=== PATIENT | female | born 1975 | race Caucasian/White ===

== ENCOUNTER 2021-01-22 10:20 | Outpatient (REF) | payer OTHER, SELFPAY ==
[2021-01-22 12:34] LABS: COVID-19 Test Negative (Negative)
== END 2021-01-22 10:21 | disposition home or self-care (01) ==
LOC: HO.LAB 10:20
PROVIDERS: PCP Internal Medicine; Visit Provider Internal Medicine
DX: Z20.822 Contact with and (suspected) exposure to COVID-19 (principal)
CPT/HCPCS: 36415; 87635; C9803

== ENCOUNTER 2025-02-18 18:00 | Emergency (ER) | payer OTHER, SELFPAY ==
[2025-02-18 18:04] VITALS: BP 141/75; PULSE 64; RESP 16; TEMP 36.1; O2SAT 100; BMI 23.6
--- NOTE | 2025-02-18 18:06 | ED.FEMALEGU ---
HPI - Female Genitourinary General Chief complaint: Urogenital-Female Stated complaint: ? uti Time Seen by Provider: 02/18/25 20:37 Source: patient Limitations: no limitations History of Present Illness ED Provider: Ana Leung PA-C HPI Narrative: 49-year-old female presents with dysuria. Associated burning with urination, discolored urine and suprapubic discomfort. Denies back pain, flank pain, nausea vomiting or fever. Related Data Previous Rx's ?Medication ?Instructions ?Recorded cephalexin 500 mg capsule 500 mg PO Q12H #13 caps 02/18/25 fluconazole 150 mg tablet 150 mg PO Q3D 2 doses #2 tabs 02/18/25 phenazopyridine 200 mg tablet 200 mg PO TID PRN pain #10 tabs 02/18/25 (Pyridium) Allergies Allergy/AdvReac Type Severity Reaction Status Date / Time No Known Allergies (No Known Allergy Verified 02/18/25 18:06 Allergies*) Review of Systems Review of Systems: Yes all other systems are reviewed and are negative Constitutional: Constitutional: Denies fatigue and Denies fever(s) Gastrointestinal: Gastrointestinal: Reports abdominal pain, Denies nausea and Denies vomiting Genitourinary: Genitourinary: Reports hematuria, Reports dysuria, Denies pelvic pain and Denies flank pain Musculoskeletal: Musculoskeletal: Denies back pain Endocrine: Endocrine: Denies fatigue [facility] Past Medical History Attestation statement: The following information was validated with the patient. Social History Social History Advance Directives: No Advance Directives Information Provided: No Physical Exam Vital Signs: Vital Signs: Last Vital Signs Temp 97.0 F 02/18/25 18:04 Pulse 64 02/18/25 18:04 Resp 16 02/18/25 18:04 BP 141/75 H 02/18/25 18:04 Pulse Ox 100 02/18/25 18:04 O2 Del Method Room Air 02/18/25 18:04 BMI result Body Mass Index 23.6 Const: Other: Alert well-appearing Orientation/consciousness: patient oriented x3 Resp: Effort & Inspection: normal respiratory effort Cardio: Other: Normal peripheral perfusion : General: Yes no CVA tenderness Back/Spine/Pelvis: Back: no CVA tenderness Skin: Other: Warm dry no rash Neuro: General: patient oriented x3, gait normal, no focal motor deficits and CN's II-XI intact bilaterally Psych: Other: Cooperative Course Course Course Narrative: This is a Rapid Medical Examination (RME) performed by Oliver Chaudhary PA-C in triage. Full HPI, ROS, assessment and treatment plan per primary provider in the Main ED. Hx: 49 yo F here for eval of increased urinary urgency and dysuria. This woke her up from her sleep last night. Plan: UA Medical Decision Making Medical Decision Making [facility] Narrative: 49-year-old female presents with dysuria. Associated burning with urination, discolored urine and suprapubic discomfort. Denies back pain, flank pain, nausea vomiting or fever. No chronic issues History: Per patient I have considered the following differential diagnoses: UTI, pyelonephritis, renal colic Plan: Patient here with symptoms of a UTI, she has no CVA tenderness in his afebrile, unlikely pyelonephritis, she is not having flank pain nausea vomiting to suggest renal colic, imaging not warranted urine preg and urinalysis completed from triage I have independently reviewed the following tests: Labs: Has a UTI, not Differential Diagnosis Differential Diagnoses: The differential diagnosis associated with the presentation includes See medical decision-making Admission/Observation Consideration of admission/observation: Escalation of care including admission/observation considered Not applicable Lab Data [facility] Lab Attestation statement: I reviewed the patient's lab results. Labs: Lab Results 02/18/25 Range/Units 20:24 Urine Color Yellow Urine Appearance Cloudy Urine pH 7.5 (5.0-9.0) Ur Specific [place] <= 1.005 (1.005-1.025) Urine Protein Negative (Neg-Trace) mg/dL Urine Glucose (UA) Negative (Negative) mg/dL Urine Ketones Negative (Negative) mg/dL Urine Blood Large (3+) H (Negative) Urine Nitrite Negative (Negative) Ur Leukocyte Esterase Large (3+) H (Negative) Urine RBC 3-5 H (0-2) /HPF Urine WBC >50 H (0-5) /HPF Ur Squamous Epith Cells 0-2 (0-2) /HPF Urine Bacteria None Seen (None Seen) Hyaline Casts 0-2 (0-2) /LPF Urine Test NEGATIVE (NEGATIVE) Discharge Plan Discharge Clinical Impression: Urinary tract infection Patient Disposition: Home, Self-Care Instructions: Urinary Tract Infection in Women (ED) Additional Instructions: You were found to have a urinary tract infection see home care instructions. Take the cephalexin as directed. Make sure to complete the course of the antibiotic. I am giving you a 1 time dose of Diflucan, if you develop symptoms of a yeast infection, take it. Use the Pyridium as needed for urinary pain. This medication will cause your urine to become fluorescent orange, this is normal. You should just increase your fluid intake it will resolve. Follow up with primary care as needed. Prescriptions: New phenazopyridine [Pyridium] 200 mg tablet 200 mg PO TID PRN (Reason: pain) Qty: 10 0RF cephalexin 500 mg capsule 500 mg PO Q12H Qty: 13 0RF fluconazole 150 mg tablet 150 mg PO Q3D Qty: 2 0RF Rx Instructions: Repeat the dose in 3 days if needed Print Language: Indonesian
--- OUTSIDE RECORDS SUMMARY | 2025-02-18 20:25 | XMS_ITS | Clinical Summary ---
Author Organization [facility] [address] [place] [address] [address] [place] [address] Phone Care Team Providers Care Histologic Technician Name Role Phone Mady Rincon MD Primary Care Prov ider Allergies Active Allergy Reactions Criticality Noted Date Comments Amoxicillin 02/25/2021 Other 08/28/2007 Seasonal Allergies Medications traZODone (DESYREL) 50 mg tablet TAKE 1/2 TABLET BY MOUTH AT BEDTIME 45 tablet 4 Active clotrimazole (LOTRIMIN) 1 % cream Apply to affected area twice daily x 3 weeks 2 Active triamcinolone (NASACORT) 55 mcg nasal inhaler Administer 2 sprays into each nostril 1 (one) time each day for 10 days. 10.8 mL 5 Active doxylamine (UNISOM) 25 mg tabletIndication s:Insomnia, unspecified type Take 1 tablet (25 mg total) by mouth at bedtime as needed for sleep. 30 tablet 5 04/18/20 25 Active sulfamethoxazole -trimethoprim (BACTRIM DS,SEPTRA DS) 800-160 mg per tablet Take 1 tablet by mouth 2 (two) times a day for 7 days. 14 each 5 02/01/20 25 Active Problems Problem Noted Date Diagnosed Date Non-seasonal allergic rhinitis 06/19/2024 Abnormal stress echo 04/14/2021 Anxiety 01/01/2021 Exercise-induced asthma 01/01/2021 Gallbladder stone without cholecystitis or obstr uction 04/13/2018 Abnormal Pap smear of cervix 07/11/2017 Overview (05/10/2024): 11/2011 ASCUS, positive HRHPV 02/2012 Colpo adequate, ECC negative 08/2012 negative cytology, negative HRHPV 04/2016 negative cytology, positive HRHPV 04/2017 LGSIL, positive HRHPV 06/2017 Colpo THOMAS 2 (? focal) 11/2017 LEEP THOMAS 1 with negative margins >>> Repeat COTESTING in ONE year Dysplastic nevi 09/13/2012 Overview (05/10/2024): Dysplastic nevi 09/13 chest & back (mild atypia) Pain in thoracic spine 03/19/2010 IBS (irritable bowel syndrome) 03/19/2008 Bloated abdomen 02/27/2008 Constipation 02/27/2008 Depression 03/30/2006 Lumbago 03/30/2006 Encounters Date Type Department Care Team Description 01/24/2025 9:30 AM EDT Office Visit Adult Medicine [address] [phone] Cassandra Corey PA Scalp cyst (Primary Dx) 01/18/2025 2:15 PM EDT Office Visit Obstetrics and Gynecology - [address] [phone] Ceci Lovelace, MILA Insomnia, unspecified type (Primary Dx); control counseling 01/14/2025 Telephone Adult Medicine [address] [phone] Mady Rincon MD from Last 3 Months Immunizations Name Administration Dates Next Due DTP 12/29/1979, 7,1975, 976,1975 Hepatitis B (Zwqqnoc-K-Vrvaf , Recombivax HB-Adult) 19yo and older 09/10/2015,06/04/2015 MMR, measles mumps and rubel la Live (Priorix; M-M-R II) 12mo and older 09/10/2015,06/04/2015,02/02/1990, 977 OPV 12/29/1979, 7,1975, 976,1975 PPD Test 12/11/1991,10/28/1980,02/28/1976 Td Tetanus diptheria (Tdvax) 7yo and older 03/30/2006,10/28/1989 Tdap Tetanus diptheria acell ular pertussis (Boostrix; Adacel) 7yo and older 08/09/2012 Surgical History Surgery Date Site/Laterality Comments FLEXIBLE SIGMOIDOSCOPY 03/19/08 PROCEDURE: MN SIGMOIDOSCOPY FLX DX W/COLLJ SPEC BR/WA IF PFRMD; COMMENT: hemorrhoids CERVICAL BIOPSY W/ LOOP ELECTRODE EXCISION 11/28/2017 PROCEDURE: MN CONIZATION CERVIX W/WO D&C RPR ELTRD EXC; COMMENT: THOMAS 1 with negative margins Medical History Medical History Date Comments Depressive disorder, not els ewhere classified 03/30/2006 DX:Depressive disorder, not elsewhere classified Lumbago 03/30/2006 DX:Lumbago Allergic rhinitis DX:Allergic rh initis IBS (irritable bowel syndrome) 03/19/2008 D X:IBS (irritable bowel syndrome) Other specified personal his tory presenting hazards to health(V15.89) 1997 DX:Other specifie d personal history presenting hazards to health(V15.89); COMMENT: cryo Gallbladder stone without cholecystitis or obstruction 04/13/2018 DX:Gallbladder stone with out cholecystitis or obstruction Family History Medical History Relation Name Comments Stroke Aunt Mental illness Brother bipolar Dementia Father Heart attack Father age 65, hyperte nsion, Mental illness Father Heart attack Maternal Grandfather age 62 Other cancer Maternal Grandfather leukemi a Lung cancer Maternal Grandmother oral ca Stroke Maternal Grandmother Other cancer Mother cervical, hyper tension, arthritis, hypothyroid, Thyroid disease Mother Breast cancer Other paternal great aunt Ovarian cancer Neg Hx Uterine cancer Neg Hx Relation Name Status Comments Aunt Brother Father Maternal Grandfather Maternal Grandmother Mother Alive Other paternal great aunt Social History Tobacco Use Types Packs/Day Years Used Date Smoking Tobacco: Former Smokeless Tobacco: Never Tobacco Cessation:Counseling Given: Not Answered Alcohol Use Standard Drinks/Week Comments Yes 0 (1 standard drink = 0.6 oz pur e alcohol) Housing Instability Answer Date Recorde d Are you worried that in the next 2 months you may not have stable housing? Patient declined 09/04/2024 Food Access & Nutrition Answer Date Rec orded Do you have access to a vari ety of food including fruits and vegetables? Patient declined 09/04/2024 Health Literacy Answer Date Recorded How often do you need to hav e someone help you when you read instructions, pamphlets, or other written material from your doctor or pharmacy? Never 09/04/2024 Caregiver: How often do you need to have someone help you when you read instructions, pamphlets, or other written material from your doctor or pharmacy? Not on file 09/04/2024 Financial Risk Answer Date Recorded How hard is it for you to pa y for the very basics like food, housing, medical care, and air conditioning / heating? Patient declined 09/04/2024 Transportation Answer Date Recorded Has the lack of transportati on kept you from meetings, work, or from getting things needed for daily living? Patient declined 09/04/2024 Has the lack of transportati on kept you from medical appointments or from getting medications? Patient declined 09/04/2024 Social Isolation Answer Date Recorded How often do you feel lonely or isolated from those around you? Patient declined 09/04/2024 Food Risk Answer Date Recorded Within the past 12 months we worried whether our food would run out before we got money to buy more. Patient declined 025 Within the past 12 months th e food we bought just didn't last and we didn't have money to get more. Patient declined 12/2024 Dependent Care Answer Date Recorded Do you need help finding or paying for care for your loved ones. For example, child care director or elderly care for an older adult? No 09/04/2024 Education Answer Date Recorded Do you think completing more education or training, like finishing a GED, going to college, or learning a trade, would be helpful for you? N/A 09/04/2024 Employment and Income Answer Date Recor ded During the last four weeks, have you been actively looking for work? No 09/04/2024 Living Situation Answer Date Recorded What is your living situation? 0 09/04/2024 Comments No Sex and Gender Information Value Date Recorded Sex Assigned at Not on file Legal Sex Female 6:33 PM EST Gender Identity Not on file Sexual Orientation Not on file Obstetrics History * This document contains information received from the source organization and may not represent a complete record from that organization. Para Term AB IAB SAB Ectopic Multiple Livin g Live Births 6 3 2 1 3 3 Date Outcome GA Total Labor Labor/2nd/3rd Weight Sex Type Anes PTL Maye A1 A5 Name Clin 03/11 1814 g (64 oz) F Living Kayla 01/01 Term 3257 g (114.9 oz) F Living Domitila 04/27 Term 2948 g (104 oz) M Living Marcelino Last Filed Vital Signs Vital Sign Reading Time Taken Comments Blood Pressure 120/77 01/24/2025 9:42 AM EDT Pulse 63 01/24/2025 9:42 AM EDT Temperature 36.1 C (97 F) 01/24/2025 9:42 AM EDT Respiratory Rate 13 01/24/2025 9:42 AM EDT Oxygen Saturation 98% 01/24/2025 9:42 AM EDT Inhaled Oxygen Concentration - - Weight 63 kg (139 lb) 01/24/2025 9:42 AM EDT Height 154.9 cm (5' 1 ) 01/24/2025 9:42 AM EDT Body Mass Index 26.26 01/24/2025 9:42 AM EDT Plan of Treatment Upcoming Encounters Date Type Department Care Team (Late st Contact Info) Description 04/02/2025 10:15 AM EST Consult General Surgery - [address] [place] [phone] Falguni Prado MD [address] [place] [phone] 09/12/2025 7:30 AM EDT Office Visit Adult Medicine [address] [phone] Mady Rincon MD [address] [place] [address] Health Maintenance Due Date Last Done Comments COVID-19 Vaccine (#1) 1980 Breast Cancer Screening 05/13/2024 05/13/20 23, 09/01/2020, 05/31/2017 Influenza Vaccine (#1) 2025 Social Influencers of Health Screening 09/04/2025 09/04/2024 Colorectal Cancer Screening: Colonoscopy 09/11/2025 Postponed from 05/08/2022 (Patient Refused) DTaP,Tdap,and Td Vaccines (9 - Td or Tdap) 09/11/2025 08/09/2012, 03/30/2006, 10/28/1989, Additional history exists Postponed from 08/09/2022 (Patient Refused) Cervical Cancer Screening: HPV 05/12/2028 05/12/2023 Cholesterol Screening (Lipid Panel) 09/11/2029 09/11/2024, 03/10/2022 IPV Vaccines Completed 12/29/1979, 05/1976, 1975, Additional history exists HIV Screening Completed 02/27/2010 Hepatitis C Screening Completed 02/27/2010 Hepatitis B Vaccines Discontinued 09/10/2015, 06/04/19 16 MMR Vaccines Completed 09/10/2015, 10/2015, 02/02/1990, Additional history exists Depression Screening Completed 11/05/2024, 01/04/20 24 HIB Vaccines Aged Out No longer eligi ble based on patient's age to complete this topic HPV Vaccines Aged Out No longer eligi ble based on patient's age to complete this topic Hepatitis A Vaccines Aged Out No long er eligible based on patient's age to complete this topic Meningococcal ACWY Vaccine Aged Out N o longer eligible based on patient's age to complete this topic Meningococcal B Vaccine Aged Out No l onger eligible based on patient's age to complete this topic Pneumococcal Vaccine: Pediatrics (0 to 5 Years) and At-Risk Patients (6 to 49 Years) Discontinued RSV Immunization Patients Under 20 months Aged Out No longer eligible based on patient's age to complete this topic Varicella Vaccines Aged Out No longer eligible based on patient's age to complete this topic Procedures Procedure Name Priority Date/Time Associated Diagnosis Comments LIPID PANEL WITH REFLEX TO DIRECT LDL Routine 09/11/2024 8:27 AM EDT Adult general medical examination Breast cancer screening by mammogram DEPRESSION SCREENING Routine 01/04/2024 SCREENING MAMMOGRAPHY BI 2-VIEW BREAST INC CAD Routine 05/13/2023 10:14 AM EST Encounter for screening mammogram for malignant neoplasm of breast HPV Routine 05/12/2023 HEPATITIS C SCREENING Routine 02/27/2010 HIV SCREENING Routine 02/27/2010 from Last 3 Months or Most Recently Relevant to Health Maintenance Results * Lipid panel with reflex to direct LDL (09/11/2024 8:27 AM EDT) Cholesterol 176 0 - 200 mg/dL LAB CHEMISTRY METHOD 09/11/2024 11:03 AM [facility] Triglycerides 135 0 - 150 mg/dL LAB CHEMISTRY METHOD 09/11/2024 11:03 AM [facility] HDL 71 >=40 mg/dL LAB CHEMISTRY METHOD 09/11/2024 11:03 AM [facility] LDL Calculated 78 0 - 100 mg/dL LAB CHEMISTRY METHOD 09/11/2024 11:03 AM [facility] VLDL Cholesterol Brett 27 mg/dL LAB CHEMISTRY METHOD 09/11/2024 11:03 AM [facility] Non HDL Chol. (LDL+VLDL) 105 <145 mg/dL LAB CHEMISTRY METHOD 09/11/2024 11:03 AM [facility] Chol/HDL Ratio 2.5 0.0 - 4.4 LAB CHEMISTRY METHOD 09/11/2024 11:03 AM [facility] Blood Venous blood specimen / Unknown Venipuncture / Unknown 09/11/2024 8:27 AM EDT 09/11/2024 8:27 AM EDT us Mady Rincon MD LAB BLOOD ORDERABL ES Final Result [facility] [address] [place] [address], * Depression Screening (01/04/2024) Depression Screening abstracted Historical Provider HEALTH MAINTENANCE Final Result * SCREENING MAMMOGRAPHY BI 2-VIEW BREAST INC CAD (05/13/2023 10:14 AM EST) Anatomical Region Laterality Modality Radiographic Bernie ging 05/12/2023 10:2 0 AM EST Narrative 05/13/2023 5:20 PM EST This is a summary report. The complete report is available in the patient's medical record. If you cannot access the medical record, please contact the sending organization for a detailed fax or copy. Study: SCREENING MAMMOGRAPHY BI 2-VIEW BREAST INC CAD Technique: Bilateral full-field digital screening mammography is obtained and read in conjunction with computer aided detection. Tomosynthesis as well as 2D C-View imaging were obtained. Comparison: Comparison made to multiple prior, most recent September 01, 2020, and most remote May 19, 2016. Breast composition: The breast tissue is heterogeneously dense, which may obscure small masses. Bilateral breasts: No significant masses, suspicious calcifications or other abnormalities are seen in either breast. IMPRESSION: Impression: Bilateral breasts: Negative, no specific mammographic evidence of malignancy. Normal interval follow-up is recommended in 12 months. BI-RADS: Category 1: Negative Procedure Note Jackie Thomas MD - 07/05/2023 This is a summary report. The complete report is available in thepatient's medical record. If you cannot access the medical record, pleasecontact the sending organization for a detailed fax or copy. Study: SCREENING MAMMOGRAPHY BI 2-VIEW BREAST INC CAD Technique: Bilateral full-field digital screening mammography is obtainedand read in conjunction with computer aided detection. Tomosynthesis aswell as 2D C-View imaging were obtained. Comparison: Comparison made to multiple prior, most recent September 01, 2020,and most remote May 19, 2016. Breast composition: The breast tissue is heterogeneously dense, which mayobscure small masses. Bilateral breasts: No significant masses, suspicious calcifications orother abnormalities are seen in either breast. IMPRESSION: Impression: Bilateral breasts: Negative, no specific mammographic evidence ofmalignancy. Normal interval follow-up is recommended in 12 months. BI-RADS: Category 1: Negative Result [facility] Ceci Lovelace CNM IMG XR PROCEDURES Final Result * Cervical Cancer Screening: HPV (05/12/2023) Pathologist [facility] Cervical Cancer Screening: HPV Abstracted ,negative Result [facility] Historical Provider HEALTH MAINTENANCE Final Result * HIV Screening (02/27/2010) Pathologist [facility] HIV Screening abstracted Result [facility] Provider HEALTH MAINTENANCE Final Result * Hepatitis C Screening (02/27/2010) Pathologist [facility] Hepatitis C Screening abstracted Result [facility] Provider HEALTH MAINTENANCE Final Result from Last 3 Months or Most Recently Relevant to Health Maintenance Insurance [facility] Advance Directives Documents on File Type Date Recorded Patient Health Data Administrator Expl anation Health Care Decision (hx) 11/28/2017 AD MARMOLEJO DIRECTIVE Health Care Decision (hx) 11/28/2017 AD MARMOLEJO DIRECTIVE Care Teams Histologic Technician Relationship Specialty Start Date End Date Mady Rincon MD [address] [place] [phone] PCP - General Internal Medicine 06/19/24
[2025-02-18 20:33] LABS: Appearance Urine Cloudy; Glucose Urine UA Negative (Negative); PH 7.5 (5.0-9.0); Specific Gravity - Urine <= 1.005 (1.005-1.025); UMIC TRIGGER UACC YES
[2025-02-18 20:34] LABS: UPreg QC Valid YES
[2025-02-18 20:43] LABS: UACC Culture Trigger YES
[2025-02-18 21:56] VITALS: BP 141/75; PULSE 64; RESP 16; TEMP 36.1; O2SAT 100
== END 2025-02-18 21:56 | disposition home or self-care (01) ==
PROVIDERS: Physician Assistant Medical; Emergency Provider Emergency Medicine; PCP Internal Medicine
DX: N39.0 Urinary tract infection, site not specified (principal)
CPT/HCPCS: 81001; 81025; 87086; 87088; 87186; 99283